=== PATIENT | male | born 1945 | race Two or more races ===

== ENCOUNTER 2017-12-04 11:33 | Outpatient (CLI) | payer OTHER | END 2017-12-04 11:39 | disposition home or self-care (01) | LOC: RAD 11:33 | DX: M99.01 Segmental and somatic dysfunction of cervical region (principal); M99.02 Segmental and somatic dysfunction of thoracic region; M99.03 Segmental and somatic dysfunction of lumbar region ==

== ENCOUNTER → 2018-02-02 | Outpatient (CLI) | payer OTHER | END | disposition home or self-care (01) | LOC: SONOGRAMA 09:58 | DX: R31.9 Hematuria, unspecified (principal) ==

== ENCOUNTER → 2019-03-18 | Outpatient (CLI) | payer OTHER | END | disposition home or self-care (01) | LOC: MAMO-SONO 09:15 → SONOGRAMA 09:33 | DX: E04.8 Other specified nontoxic goiter (principal) ==

== ENCOUNTER → 2019-03-18 | Outpatient (CLI) | payer OTHER | END | disposition home or self-care (01) | LOC: NUCLEAR 10:10 | DX: M81.0 Age-related osteoporosis without current pathological fracture (principal); M85.80 Other specified disorders of bone density and structure, unspecified site ==

== ENCOUNTER 2019-09-28 11:01 | Outpatient (CLI) | payer OTHER | END 2019-09-28 11:04 | disposition home or self-care (01) | LOC: TOM 11:01 | DX: G31.84 Mild cognitive impairment of uncertain or unknown etiology (principal) ==

== ENCOUNTER 2019-10-10 09:19 | Outpatient (CLI) | payer OTHER | END 2019-10-10 09:35 | disposition home or self-care (01) | LOC: MRI 09:19 | DX: G40.209 Localization-related (focal) (partial) symptomatic epilepsy and epileptic syndromes with complex partial seizures, not intractable, without status epilepticus (principal); G31.84 Mild cognitive impairment of uncertain or unknown etiology | CPT/HCPCS: 70551 ==

== ENCOUNTER 2020-04-18 09:04 | Outpatient (CLI) | payer OTHER | END 2020-04-18 09:05 | disposition home or self-care (01) | LOC: RX STUDY 09:04 | PROVIDERS: ATTEND Specialist | DX: R13.19 Other dysphagia (principal) ==

== ENCOUNTER 2021-04-30 12:26 | Outpatient (CLI) | payer OTHER | END 2021-04-30 12:46 | disposition home or self-care (01) | LOC: NUCLEAR 12:26 | PROVIDERS: ATTEND General Practice | DX: M81.0 Age-related osteoporosis without current pathological fracture (principal); Z13.820 Encounter for screening for osteoporosis ==

== ENCOUNTER 2021-08-13 07:25 | Outpatient (CLI) | payer OTHER | END 2021-08-13 07:43 | disposition home or self-care (01) | LOC: SONOGRAMA 07:25 | PROVIDERS: ATTEND Specialist | DX: E04.1 Nontoxic single thyroid nodule (principal); E06.3 Autoimmune thyroiditis ==

== ENCOUNTER → 2021-08-23 | Outpatient (CLI) | payer OTHER | END | disposition home or self-care (01) | LOC: MRI 08:15 | PROVIDERS: ATTEND Physical Medicine & Rehabilitation Hospice and Palliative Medicine | DX: M48.02 Spinal stenosis, cervical region (principal); M54.6 Pain in thoracic spine; M54.59 Other low back pain | CPT/HCPCS: 72141 ==

== ENCOUNTER 2024-02-16 10:17 | Outpatient (CLI) | payer OTHER | END 2024-02-16 10:23 | disposition home or self-care (01) | LOC: SONOGRAMA 10:17 | PROVIDERS: ATTEND Specialist | DX: R10.10 Upper abdominal pain, unspecified (principal) ==

== ENCOUNTER 2025-08-03 10:31 | Outpatient (CLI) | payer OTHER | END 2025-08-03 10:36 | disposition home or self-care (01) | LOC: RAD 10:31 | PROVIDERS: ATTEND Specialist | DX: M25.561 Pain in right knee (principal) ==

== ENCOUNTER 2025-08-29 08:22 | Outpatient (CLI) | payer OTHER | END 2025-08-29 08:31 | disposition home or self-care (01) | LOC: MRI 08:22 | PROVIDERS: ATTEND Physical Medicine & Rehabilitation Hospice and Palliative Medicine | DX: M25.561 Pain in right knee (principal); M23.203 Derangement of unspecified medial meniscus due to old tear or injury, right knee | CPT/HCPCS: 73721 ==